=== PATIENT | female | born 1960 | race Caucasian/White ===

== ENCOUNTER 2020-08-12 00:56 | Emergency (ER) | payer BC, SELFPAY ==
[2020-08-12] MEDS ORDERED: EPINEPHrine 1 MG/10 ML Abboject SYRINGE ONE (11:32)
== END 2020-08-12 01:02 | disposition expired ==
LOC: ERS 00:56
DX: I46.9 Cardiac arrest, cause unspecified (principal); I87.8 Other specified disorders of veins; R60.0 Localized edema
CPT/HCPCS: 92950; 96374; J0171